=== PATIENT | female | born 1950 | race Caucasian/White ===

== ENCOUNTER 2020-06-07 10:39 | Inpatient (IN) | payer MEDICARE, OTHER ==
[2020-06-07] MEDS ORDERED: Sodium Chloride 0.9% 10 ML Syringe FLUSH PRN (14:19)
[2020-06-07] MEDS ORDERED: Metoprolol Tartrate 25 MG Tab PO ONE (14:29)
[2020-06-07 15:54] LABS: ANION GAP 15.1 mmol/L (5-15); CHLORIDE,CL 99 mmol/L (98-107); SODIUM,NA 135 mmol/L (136-145)
[2020-06-07] MEDS: Rivaroxaban 10 MG Tab PO SCH (17:45)
[2020-06-07] MEDS: Sodium Chloride 0.9% 1,000 ML IV SCH (17:46)
[2020-06-07] MEDS: Acetaminophen 325 MG Tab PO PRN (20:11)
[2020-06-07] MEDS: Metoprolol Tartrate 25 MG Tab PO SCH (20:12)
[2020-06-07] MEDS ORDERED: Metoprolol Tartrate 5 MG/5 ML SDV IVPUSH PRN (22:10)
[2020-06-08] MEDS: Acetaminophen 325 MG Tab PO PRN ×2 (02:32→17:16)
[2020-06-08] MEDS: Sodium Chloride 0.9% 1,000 ML IV SCH (07:34)
[2020-06-08] MEDS: Metoprolol Tartrate 25 MG Tab PO SCH (08:30)
[2020-06-08] MEDS: Metoprolol Tartrate 50 MG Tab PO SCH ×2 (10:32→20:02)
--- NOTE | 2020-06-08 11:41 | PCM.PN ---
- General Info Date of Service: 06/08/20 Functional Status: Reports: Pain Controlled, Tolerating Diet. Denies: Ambulating - Review of Systems General: Reports: No Symptoms HEENT: Reports: No Symptoms Pulmonary: Denies: Shortness of Breath, Cough, Sputum Cardiovascular: Reports: Palpitations. Denies: Orthopnea, PND, Edema Gastrointestinal: Reports: No Symptoms Genitourinary: Reports: Frequency, Flank Pain. Denies: Dysuria Musculoskeletal: Reports: No Symptoms Skin: Reports: No Symptoms Neurological: Denies: Confusion Psychiatric: Reports: No Symptoms - Patient Data Vitals - Most Recent: Last Vital Signs Temp 98.1 F 06/08/20 10:31 Pulse 107 H 06/08/20 10:32 Resp 18 06/08/20 10:31 BP 138/93 H 06/08/20 10:32 Pulse Ox 98 06/08/20 10:31 Weight - Most Recent: 187 lb I&O - Last 24 Hours: Intake & Output 06/07/20 06/08/20 06/08/20 22:59 06:59 14:59 Intake Total 917 905 Output Total 800 1350 Balance 117 -445 Lab Results Last 24 Hours: Laboratory Results - last 24 hr 06/07/20 06/07/20 06/07/20 Range/Units 14:19 14:50 14:50 WBC 5.42 (5.00-10.00) 10^3/uL RBC 3.69 L (3.80-5.50) 10^6/uL Hgb 11.6 L (12.0-16.0) g/dL Hct 35.6 L (37.0-47.0) % MCV 96.5 H (82.0-92.0) fL MCH 31.4 H (27.0-31.0) pg MCHC 32.6 (32.0-36.0) g/dL RDW 14.7 H (11.5-14.5) % Plt Count 330 (150-400) 10^3/uL MPV 8.6 (7.4-10.4) fL Immature Gran % (Auto) 0.2 (0.0-5.0) % Neut % (Auto) 70.6 H (50.0-70.0) % Lymph % (Auto) 21.6 (20.0-40.0) % Beckham % (Auto) 4.1 (2.0-8.0) % Eos % (Auto) 3.3 H (1.0-3.0) % Baso % (Auto) 0.2 (0.0-1.0) % Neut # (Auto) 3.83 (2.50-7.00) 10^3/uL Lymph # (Auto) 1.17 (1.00-4.00) 10^3/uL Beckham # (Auto) 0.22 (0.10-0.80) 10^3/uL Eos # (Auto) 0.18 (0.10-0.30) 10^3/uL Baso # (Auto) 0.01 (0.00-0.10) 10^3/uL Immature Gran # (Auto) 0.01 (0.00-0.50) 10^3/uL Sodium 135 L (136-145) mmol/L Potassium 4.1 (3.5-5.1) mmol/L Chloride 99 (98-107) mmol/L Carbon Dioxide 25.0 (21.0-32.0) mmol/L Anion Gap 15.1 H (5-15) mmol/L BUN 22 H (7-18) mg/dL Creatinine 0.84 (0.51-1.17) mg/dL Est Cr Clr Drug Dosing 48.58 mL/min Estimated GFR (MDRD) > 60 mL/min Glucose 153 H (70-140) mg/dL Calcium 8.7 (8.7-10.3) mg/dL Phosphorus 3.7 (2.6-4.7) mg/dL Magnesium 2.0 (1.8-2.4) mg/dL Total Bilirubin 0.6 (0.2-1.0) mg/dL AST 14 L (15-37) U/L ALT 23 (14-63) U/L Alkaline Phosphatase 97 (46-116) U/L Troponin I (0.000-0.056) ng/mL Total Protein 7.1 (6.4-8.2) g/dL Albumin 3.68 (3.40-5.00) g/dL TSH, Ultra Sensitive (0.340-4.820) uIU/mL Specimen Type Urincc Urine Color Yellow (YELLOW) Urine Appearance Clear (CLEAR) Urine pH 5.5 (5.0-9.0) Ur Specific Ridott 1.015 (1.005-1.030) Urine Protein Negative (NEGATIVE) mg/dL Urine Glucose (UA) Negative (NEGATIVE) mg/dL Urine Ketones Negative (NEGATIVE) mg/dL Urine Occult Blood Negative (NEGATIVE) Urine Nitrite Negative (NEGATIVE) Urine Bilirubin Negative (NEGATIVE) Urine Urobilinogen 0.2 (0.2-1.0) E.U./dL Ur Leukocyte Esterase Trace H (NEGATIVE) Urine RBC 0-5 (0-5) /HPF Urine WBC 30-40 H (0-5) /HPF Ur Epithelial Cells Few /LPF Urine Bacteria Occasional (NONE TO FEW) /HPF Urine Mucus Moderate H (NEGATIVE) /LPF 06/07/20 Range/Units 14:50 WBC (5.00-10.00) 10^3/uL RBC (3.80-5.50) 10^6/uL Hgb (12.0-16.0) g/dL Hct (37.0-47.0) % MCV (82.0-92.0) fL MCH (27.0-31.0) pg MCHC (32.0-36.0) g/dL RDW (11.5-14.5) % Plt Count (150-400) 10^3/uL MPV (7.4-10.4) fL Immature Gran % (Auto) (0.0-5.0) % Neut % (Auto) (50.0-70.0) % Lymph % (Auto) (20.0-40.0) % Beckham % (Auto) (2.0-8.0) % Eos % (Auto) (1.0-3.0) % Baso % (Auto) (0.0-1.0) % Neut # (Auto) (2.50-7.00) 10^3/uL Lymph # (Auto) (1.00-4.00) 10^3/uL Beckham # (Auto) (0.10-0.80) 10^3/uL Eos # (Auto) (0.10-0.30) 10^3/uL Baso # (Auto) (0.00-0.10) 10^3/uL Immature Gran # (Auto) (0.00-0.50) 10^3/uL Sodium (136-145) mmol/L Potassium (3.5-5.1) mmol/L Chloride (98-107) mmol/L Carbon Dioxide (21.0-32.0) mmol/L Anion Gap (5-15) mmol/L BUN (7-18) mg/dL Creatinine (0.51-1.17) mg/dL Est Cr Clr Drug Dosing mL/min Estimated GFR (MDRD) mL/min Glucose (70-140) mg/dL Calcium (8.7-10.3) mg/dL Phosphorus (2.6-4.7) mg/dL Magnesium (1.8-2.4) mg/dL Total Bilirubin (0.2-1.0) mg/dL AST (15-37) U/L ALT (14-63) U/L Alkaline Phosphatase (46-116) U/L Troponin I < 0.017 (0.000-0.056) ng/mL Total Protein (6.4-8.2) g/dL Albumin (3.40-5.00) g/dL TSH, Ultra Sensitive 2.364 (0.340-4.820) uIU/mL Specimen Type Urine Color (YELLOW) Urine Appearance (CLEAR) Urine pH (5.0-9.0) Ur Specific Ridott (1.005-1.030) Urine Protein (NEGATIVE) mg/dL Urine Glucose (UA) (NEGATIVE) mg/dL Urine Ketones (NEGATIVE) mg/dL Urine Occult Blood (NEGATIVE) Urine Nitrite (NEGATIVE) Urine Bilirubin (NEGATIVE) Urine Urobilinogen (0.2-1.0) E.U./dL Ur Leukocyte Esterase (NEGATIVE) Urine RBC (0-5) /HPF Urine WBC (0-5) /HPF Ur Epithelial Cells /LPF Urine Bacteria (NONE TO FEW) /HPF Urine Mucus (NEGATIVE) /LPF Med Orders - Current: Current Medications Acetaminophen (Tylenol) 650 mg PO Q4H PRN PRN Reason: Pain (Mild 1-3)/fever Last Admin: 06/08/20 02:32 Dose: 650 mg Documented by: Sodium Chloride (Normal Saline) 1,000 mls @ 75 mls/hr IV ASDIRECTED COLE Last Admin: 06/08/20 07:34 Dose: 75 mls/hr Documented by: Metoprolol Tartrate (Lopressor) 5 mg IVPUSH ONETIME PRN PRN Reason: Tachycardia Metoprolol Tartrate (Lopressor) 50 mg PO BID [facility] Last Admin: 06/08/20 10:32 Dose: 50 mg Documented by: Rivaroxaban (Xarelto) 20 mg PO 1800 [facility] Last Admin: 06/07/20 17:45 Dose: 20 mg Documented by: Sodium Chloride (Saline Flush) 10 ml FLUSH Q8HR PRN PRN Reason: keep vein open Last Admin: 06/07/20 14:49 Dose: 10 ml Documented by: Discontinued Medications Metoprolol Tartrate (Lopressor) 25 mg PO ONETIME ONE Stop: 06/07/20 14:30 Last Admin: 06/07/20 14:39 Dose: 25 mg Documented by: Metoprolol Tartrate (Lopressor) 25 mg PO BID [facility] Last Admin: 06/08/20 08:30 Dose: 25 mg Documented by: - Exam Quality Assessment: DVT Prophylaxis. No: Supplemental Oxygen General: Alert, Oriented Neck: Supple Lungs: Clear to Auscultation, Normal Respiratory Effort Cardiovascular: Irregular Rhythm, Tachycardia GI/Abdominal Exam: Normal Bowel Sounds, Soft (Female) Exam: Deferred Back Exam: CVA Tenderness (L). No: CVA Tenderness (R) Extremities: No Pedal Edema Peripheral Pulses: 2+: Radial (R), 3+: Femoral (L) Skin: Warm, Dry, Intact Neurological: No New Focal Deficit Psy/Mental Status: Alert, Normal Affect, Normal Mood Sepsis Event Note - Evaluation Sepsis Screening Result: No Definite Risk - Focused Exam Vital Signs: Vital Signs Temp Pulse Pulse Resp BP BP BP 06/08/20 10:32 107 H 138/93 H 06/08/20 10:31 98.1 F 107 H 18 138/93 H 06/08/20 09:20 98.0 F 117 H 18 135/92 H 06/08/20 08:30 117 H 135/92 H 06/08/20 07:00 97.4 F 98 16 140/84 06/08/20 02:33 98.1 F 96 18 131/90 Pulse Ox 06/08/20 10:32 06/08/20 10:31 98 06/08/20 09:20 98 06/08/20 08:30 06/08/20 07:00 97 06/08/20 02:33 97 - Problem List Review Problem List Initiated/Reviewed/Updated: Yes - My Orders Last 24 Hours: My Active Orders 06/08/20 09:15 Metoprolol Tartrate [Lopressor] 50 mg PO BID - Plan Plan:: History summary Katelin is a 69yr old female patient was admitted into OBS status yesterday due to newly found onset atrial fibrillation with RVR. Patient ported to an [facility] clinic yesterday complaining of urinary frequency with left-sided flank pain was incidentally found to have irregular heart rate. Patient denies any palpitations to her being admitted. No noted history of cardiac arrhthymias. Side of possible infection induced A. fib she does have longstanding history of hypertension and obesity, denies REJI. UTI history --Evaluated by Tiffanie Lopes APRN, RICARDO on 04/01/20 for complaints of UTI symptoms and was diagnosed with BV and vaginal yeast infection. UC +ve for ecoli and mixed microflora and UTI was treated with macrobid bid x 5 days. --Evaluated by Tiffanie Lopes APRN, RICARDO on03/11/20 for complaints of urinary frequency and burning. Urine culture indicated <10,000 mixed microflora; antibiotics started initially and stopped due to inconclusive result. ECHO 2019, EF 75%--hyperdynamic, grade 1 ventricular diastolic dysfunction, moderately dilated L left atrium, No significant stenosis or regurgitation Hospital course Patient received metoprolol tartrate 5 mg IV push with some improvement in heart rate however periodically breaking through the 120s 130s. Started on factor Xa inhibitor, discused DOAC with pharmacy/patient despite cost patient willing to continue post hospitalization. BP >120, good MAP Primary Hospital problems --Atrial fibrillation, suspect new onset given symptoms, [id number] Score, 3 )age/htn/gender) --UTI, mild symptoms however prudent to treat --CAD, reviewed cardiac cath 2019--Non-obstructive --Obesity BMI 33%, comorbid/contributory --Hypertension, comorbid/contributory, ARB --Hyperlipipidemia --RA, holding NSAIDs and methotrexate. Methotrexate factor Xa inhibitor not good combination--will discuss upon discharge --Osteopenia Disposition/overall plan --Increase metoprolol tartrate to 50 mg p.o. now, can start new dose regimen now despite 25 mg given earlier --If no improvement in heart rate at rest with BB will consider adjuntive CCB or digoxin even without overt CHF history. --Saline lock IV fluids --Add PO abx due to UTI- --Cont Telemetry --Bedside video/education on atrial fibrillation --Continue BP heart rate parameters
[2020-06-08] MEDS ORDERED: Omeprazole 20 MG Cap.CR PO PRN (11:42)
[2020-06-08] MEDS ORDERED: Sodium Chloride 0.9% 10 ML Syringe FLUSH PRN (11:49)
[2020-06-08] MEDS: Nitrofurantoin Monohydrate/Macrocrystalline 100 MG Cap PO SCH ×2 (14:56→22:01)
[2020-06-08] MEDS: Rivaroxaban 10 MG Tab PO SCH (17:16)
[2020-06-09] MEDS ORDERED: Diltiazem 25 MG/5 ML SDV IVPUSH ONE (06:18)
[2020-06-09] MEDS ORDERED: Diltiazem 25 MG/5 ML SDV IVPUSH PRN (07:00)
[2020-06-09] MEDS: Nitrofurantoin Monohydrate/Macrocrystalline 100 MG Cap PO SCH ×2 (07:59→21:44)
--- NOTE | 2020-06-09 10:23 | PCM.PN ---
- General Info Date of Service: 06/09/20 Functional Status: Reports: Pain Controlled - Review of Systems Pulmonary: Reports: Shortness of Breath (only when ambulating to ). Denies: Cough, Sputum, Hemoptysis, Wheezing Cardiovascular: Reports: Palpitations, Dyspnea on Exertion. Denies: Chest Pain Gastrointestinal: Reports: No Symptoms Genitourinary: Reports: No Symptoms Musculoskeletal: Reports: No Symptoms Skin: Reports: No Symptoms Neurological: Denies: Confusion Psychiatric: Reports: No Symptoms - Patient Data Vitals - Most Recent: Last Vital Signs Temp 98.7 F 06/09/20 06:40 Pulse 103 H 06/09/20 06:40 Resp 20 06/09/20 06:40 BP 138/80 06/09/20 06:40 Pulse Ox 95 06/09/20 06:40 Weight - Most Recent: 187 lb I&O - Last 24 Hours: Intake & Output 06/08/20 06/09/20 06/09/20 22:59 06:59 14:59 Intake Total 450 200 Output Total 900 800 Balance -450 -600 Med Orders - Current: Current Medications Acetaminophen (Tylenol) 650 mg PO Q4H PRN PRN Reason: Pain (Mild 1-3)/fever Last Admin: 06/08/20 17:16 Dose: 650 mg Documented by: Diltiazem HCl (Diltiazem) 5 mg IVPUSH ONETIME PRN PRN Reason: heart rate greater than 110 Last Admin: 06/09/20 07:01 Dose: 5 mg Documented by: Metoprolol Tartrate (Lopressor) 50 mg PO BID [facility] Last Admin: 06/08/20 20:02 Dose: 50 mg Documented by: Nitrofurantoin Macrocrystals (Macrobid) 100 mg PO BID [facility] Last Admin: 06/09/20 07:59 Dose: 100 mg Documented by: Omeprazole (Omeprazole) 20 mg PO DAILY PRN PRN Reason: Heartburn Rivaroxaban (Xarelto) 20 mg PO 1800 [facility] Last Admin: 06/08/20 17:16 Dose: 20 mg Documented by: Sodium Chloride (Saline Flush) 10 ml FLUSH Q8HR PRN PRN Reason: keep vein open Last Admin: 06/07/20 14:49 Dose: 10 ml Documented by: Sodium Chloride (Saline Flush) 10 ml FLUSH Q8HR PRN PRN Reason: keep vein open Discontinued Medications Diltiazem HCl (Diltiazem) 5 mg IVPUSH ONETIME ONE Stop: 06/09/20 06:19 Last Admin: 06/09/20 06:30 Dose: 5 mg Documented by: Sodium Chloride (Normal Saline) 1,000 mls @ 75 mls/hr IV ASDIRECTED [facility] Last Admin: 06/08/20 07:34 Dose: 75 mls/hr Documented by: Metoprolol Tartrate (Lopressor) 25 mg PO ONETIME ONE Stop: 06/07/20 14:30 Last Admin: 06/07/20 14:39 Dose: 25 mg Documented by: Metoprolol Tartrate (Lopressor) 25 mg PO BID [facility] Last Admin: 06/08/20 08:30 Dose: 25 mg Documented by: Metoprolol Tartrate (Lopressor) 5 mg IVPUSH ONETIME PRN PRN Reason: Tachycardia - Exam Quality Assessment: DVT Prophylaxis. No: Supplemental Oxygen General: Alert, Oriented, Cooperative, No Acute Distress Lungs: Clear to Auscultation, Normal Respiratory Effort Cardiovascular: Irregular Rhythm, Tachycardia GI/Abdominal Exam: Normal Bowel Sounds, Soft (Female) Exam: Deferred Back Exam: No: CVA Tenderness (L), CVA Tenderness (R) Extremities: No Pedal Edema, Other (deformities bilateral hands due to RA) Peripheral Pulses: 2+: Radial (L), Radial (R) Neurological: Normal Gait, Normal Speech Psy/Mental Status: Alert, Normal Affect, Normal Mood Sepsis Event Note - Evaluation Sepsis Screening Result: No Definite Risk - Focused Exam Vital Signs: Vital Signs Temp Pulse Resp BP Pulse Ox 06/09/20 06:40 98.7 F 103 H 20 138/80 95 06/09/20 03:00 98.6 F 112 H 20 140/85 95 06/08/20 23:43 101 H 139/86 06/08/20 23:00 98 F 108 H 20 160/102 H 96 - Problem List Review Problem List Initiated/Reviewed/Updated: Yes - My Orders Last 24 Hours: My Active Orders 06/08/20 11:42 Omeprazole 20 mg PO DAILY PRN 06/08/20 11:45 Nitrofurantoin Stearns/Macrocryst [Macrobid] 100 mg PO BID 06/08/20 11:49 Sodium Chloride 0.9% [Saline Flush] 10 ml FLUSH Q8HR PRN Convert IV to Saline Lock [OM.PC] Routine - Plan Plan:: History summary Katelin is a 69yr old female patient was admitted into OBS status yesterday due to newly found onset atrial fibrillation with RVR. Patient ported to an [facility] yesterday complaining of urinary frequency with left-sided flank pain was incidentally found to have irregular heart rate. Patient denies any palpitations to her being admitted. No noted history of cardiac arrhthymias. Side of possible infection induced A. fib she does have longstanding history of hypertension and obesity, denies REJI. UTI history --Evaluated by Tiffanie Lopes APRN, CNP on 04/01/20 for complaints of UTI symptoms and was diagnosed with BV and vaginal yeast infection. UC +ve for ecoli and mixed microflora and UTI was treated with macrobid bid x 5 days. --Evaluated by Tiffanie Lopes APRN, CNP on03/11/20 for complaints of urinary frequency and burning. Urine culture indicated <10,000 mixed microflora; antibiotics started initially and stopped due to inconclusive result. ECHO 2019, EF 75%--hyperdynamic, grade 1 ventricular diastolic dysfunction, moderately dilated L left atrium, No significant stenosis or regurgitation Hospital course 06/08/2020 patient received metoprolol tartrate 5 mg IV push with some improvement in heart rate however periodically breaking through the 120s 130s. Started on factor Xa inhibitor, discused DOAC with pharmacy/patient despite cost patient willing to continue post hospitalization. BP >120, good MAP 06/09/2020 Patient with tachycardia with overnight concerns of ongoing atrial fibrillation with RVR with orders to discontinue beta-loren and start diltiazem IV push x2. She with mild shortness of breath only on ambulation to the bathroom, no edema no chest pain, she continues with anticoagulation, RVR 120s to 140s at times at rest Primary Hospital problems --Atrial fibrillation, suspect new onset given symptoms, [id number] Score, 3 )age/htn/gender) --UTI, mild symptoms upon admission, abx PO --CAD, reviewed cardiac cath 2018--Non-obstructive --Obesity BMI 33%, comorbid/contributory --Hypertension, comorbid/contributory, ARB --Hyperlipipidemia --RA, holding NSAIDs and methotrexate. Methotrexate factor Xa inhibitor not good combination--will discuss upon discharge, --Osteopenia Disposition/overall plan --Change to inpatient due to atrial tachycardia ongoing need for titration of high risk medications --Given refractory atrial fibrillation with RVR will place patient on diltiazem drip per protocol, monitor BP, keep hydrated to avoid hypotension as we titrate up --If no improvement in HR/rhythm even lenient control will send patient to [facility] for cardioversion a.m. since 72-hours anti-coagulation, likely will need MOE since stable --Could consider adding digoxin tonight if no improvement and/or hypotension due to CCB gtt even without overt CHF history. --Encourage PO fluids--very important since upward titration of CCB --Cont Telemetry --Bedside video/education on atrial fibrillation --Continue BP heart rate parameters
[2020-06-09 10:56] LABS: ANION GAP 11.8 mmol/L (5-15); CHLORIDE,CL 99 mmol/L (98-107); SODIUM,NA 132 mmol/L (136-145)
[2020-06-09] MEDS: Acetaminophen 325 MG Tab PO PRN ×3 (10:56→21:44)
[2020-06-09] MEDS ORDERED: Diltiazem 125 MG in Sodium Chloride 0.9% 100 ML IV SCH (11:00)
[2020-06-09] MEDS ORDERED: Sodium Chloride 0.9% 100 ML IV SCH (11:00)
[2020-06-09] MEDS ORDERED: Diltiazem 25 MG/5 ML SDV IVPUSH SCH ×2 (12:15→13:15)
[2020-06-09] MEDS: Rivaroxaban 10 MG Tab PO SCH (17:31)
[2020-06-09] MEDS: Diltiazem 125 MG in Sodium Chloride 0.9% 100 ML IV SCH (20:36)
[2020-06-10] MEDS: Acetaminophen 325 MG Tab PO PRN ×4 (04:15→18:06)
[2020-06-10] MEDS: Diltiazem 125 MG in Sodium Chloride 0.9% 100 ML IV SCH (05:27)
[2020-06-10] MEDS: Nitrofurantoin Monohydrate/Macrocrystalline 100 MG Cap PO SCH ×2 (09:02→21:06)
[2020-06-10] MEDS ORDERED: Digoxin 500 MCG/2 ML Amp IVPUSH ONE ×4 (11:00→23:00)
[2020-06-10] MEDS: Diltiazem IR 30 MG Tab PO SCH ×3 (11:33→23:12)
[2020-06-10] MEDS: Rivaroxaban 10 MG Tab PO SCH (17:26)
[2020-06-10] MEDS ORDERED: Amiodarone/Dextrose,Iso-Osmotic 150 MG/100 ML Premix Bag IV ONE (17:56)
[2020-06-10] MEDS: Amiodarone In Dextrose,Iso-Osm 360 MG in Premix Bag 1 BAG IV SCH ×2 (19:54)
--- NOTE | 2020-06-10 21:17 | PCM.PN ---
- General Info Date of Service: 06/10/20 Functional Status: Reports: Pain Controlled - Review of Systems General: Reports: No Symptoms HEENT: Reports: No Symptoms Pulmonary: Reports: Shortness of Breath Cardiovascular: Denies: Chest Pain, Palpitations Gastrointestinal: Reports: No Symptoms Genitourinary: Reports: No Symptoms Musculoskeletal: Reports: No Symptoms Skin: Reports: No Symptoms Neurological: Reports: No Symptoms Psychiatric: Reports: No Symptoms - Patient Data Vitals - Most Recent: Last Vital Signs Temp 98 F 06/10/20 19:00 Pulse 99 06/10/20 19:00 Resp 18 06/10/20 19:00 BP 136/90 06/10/20 19:00 Pulse Ox 96 06/10/20 19:00 Weight - Most Recent: 187 lb I&O - Last 24 Hours: Intake & Output 06/10/20 06/10/20 06/10/20 06:59 14:59 22:59 Intake Total 600 700 Output Total 900 300 Balance -300 400 Med Orders - Current: Current Medications Acetaminophen (Tylenol) 650 mg PO Q4H PRN PRN Reason: Pain (Mild 1-3)/fever Last Admin: 06/10/20 18:06 Dose: 650 mg Documented by: Digoxin (Lanoxin) 62.5 mcg IVPUSH ONETIME ONE Stop: 06/10/20 23:01 Diltiazem HCl (Cardizem) 30 mg PO Q6HR [facility] Last Admin: 06/10/20 17:25 Dose: 30 mg Documented by: Sodium Chloride (Normal Saline) 100 mls @ 100 mls/hr IV ASDIRECTED [facility] Amiodarone HCl/Dextrose 360 mg (/ Premix) 200 mls @ 33.3 mls/hr IV ASDIRECTED [facility]; Protocol Last Admin: 06/10/20 19:54 Dose: 33.3 mls/hr Documented by: Metoprolol Tartrate (Lopressor) 50 mg PO BID [facility] Last Admin: 06/08/20 20:02 Dose: 50 mg Documented by: Nitrofurantoin Macrocrystals (Macrobid) 100 mg PO BID [facility] Last Admin: 06/10/20 21:06 Dose: 100 mg Documented by: Omeprazole (Omeprazole) 20 mg PO DAILY PRN PRN Reason: Heartburn Rivaroxaban (Xarelto) 20 mg PO 1800 [facility] Last Admin: 06/10/20 17:26 Dose: 20 mg Documented by: Sodium Chloride (Saline Flush) 10 ml FLUSH Q8HR PRN PRN Reason: keep vein open Last Admin: 06/07/20 14:49 Dose: 10 ml Documented by: Sodium Chloride (Saline Flush) 10 ml FLUSH Q8HR PRN PRN Reason: keep vein open Discontinued Medications Amiodarone HCl/Dextrose (Nexterone In Dextrose 150 Mg/100 Ml) 150 mg IV .BOLUS ONE; Protocol Stop: 06/10/20 17:57 Last Admin: 06/10/20 18:44 Dose: 150 mg Documented by: Digoxin (Lanoxin) 250 mcg IVPUSH ONETIME ONE Stop: 06/10/20 11:01 Last Admin: 06/10/20 11:08 Dose: 250 mcg Documented by: Digoxin (Lanoxin) 125 mcg IVPUSH ONETIME ONE Stop: 06/10/20 17:01 Last Admin: 06/10/20 17:22 Dose: 125 mcg Documented by: Digoxin (Lanoxin) 125 mcg IVPUSH ONETIME ONE Stop: 06/10/20 23:01 Diltiazem HCl (Diltiazem) 5 mg IVPUSH ONETIME ONE Stop: 06/09/20 06:19 Last Admin: 06/09/20 06:30 Dose: 5 mg Documented by: Diltiazem HCl (Diltiazem) 5 mg IVPUSH ONETIME PRN PRN Reason: heart rate greater than 110 Last Admin: 06/09/20 07:01 Dose: 5 mg Documented by: Diltiazem HCl (Diltiazem) 5 mg IVPUSH ONETIME COLE Diltiazem HCl (Diltiazem) 5 mg IVPUSH ONETIME [facility] Last Admin: 06/09/20 13:21 Dose: 5 mg Documented by: Sodium Chloride (Normal Saline) 1,000 mls @ 75 mls/hr IV ASDIRECTED [facility] Last Admin: 06/08/20 07:34 Dose: 75 mls/hr Documented by: Diltiazem HCl 125 mg/ Sodium (Chloride) 125 mls @ 5 mls/hr IV TITRATE [facility]; Protocol Last Admin: 06/10/20 05:27 Dose: 15 mg/hr, 15 mls/hr Documented by: Diltiazem HCl 125 mg/ Sodium (Chloride) 125 mls @ 5 mls/hr IV TITRATE [facility]; Protocol Last Admin: 06/09/20 11:05 Dose: 5 mg/hr, 5 mls/hr Documented by: Metoprolol Tartrate (Lopressor) 25 mg PO ONETIME ONE Stop: 06/07/20 14:30 Last Admin: 06/07/20 14:39 Dose: 25 mg Documented by: Metoprolol Tartrate (Lopressor) 25 mg PO BID [facility] Last Admin: 06/08/20 08:30 Dose: 25 mg Documented by: Metoprolol Tartrate (Lopressor) 5 mg IVPUSH ONETIME PRN PRN Reason: Tachycardia - Exam Quality Assessment: DVT Prophylaxis. No: Supplemental Oxygen General: Alert, Oriented Neck: Supple Lungs: Clear to Auscultation, Normal Respiratory Effort Cardiovascular: No Murmurs, Irregular Rhythm, Tachycardia GI/Abdominal Exam: Normal Bowel Sounds (Female) Exam: Deferred Back Exam: No: CVA Tenderness (L), CVA Tenderness (R) Extremities: Normal Capillary Refill Peripheral Pulses: 2+: Radial (L), Radial (R) Skin: Warm, Dry, Intact - Patient Data Result Diagrams: 06/09/20 10:30 06/09/20 10:30 Sepsis Event Note - Evaluation Sepsis Screening Result: No Definite Risk - Focused Exam Vital Signs: Vital Signs Temp Pulse Pulse Resp BP BP BP 06/10/20 19:00 98 F 99 18 136/90 06/10/20 18:52 112 H 16 145/82 H 06/10/20 18:50 113 H 16 156/84 H 06/10/20 17:25 99 155/99 H 06/10/20 17:22 99 06/10/20 15:00 97.5 F 88 16 151/105 H 06/10/20 14:00 06/10/20 11:33 79 129/90 06/10/20 11:08 80 06/10/20 11:00 97.4 F 76 24 H 129/90 Pulse Ox Pulse Ox 06/10/20 19:00 96 06/10/20 18:52 96 06/10/20 18:50 97 06/10/20 17:25 06/10/20 17:22 06/10/20 15:00 96 06/10/20 14:00 96 06/10/20 11:33 06/10/20 11:08 06/10/20 11:00 96 - Problem List Review Problem List Initiated/Reviewed/Updated: Yes - My Orders Last 24 Hours: My Active Orders 06/10/20 11:30 Diltiazem IR [Cardizem] 30 mg PO Q6HR 06/10/20 19:15 Amiodarone In Dextrose,Iso-Osm [Nexterone in Dextrose 360 MG/200 ML] 360 mg Premix Bag 1 bag IV ASDIRECTED 06/10/20 23:00 Digoxin [Lanoxin] 62.5 mcg IVPUSH ONETIME ONE - Plan Plan:: History summary Katelin is a 69yr old female patient was admitted into OBS status yesterday due to newly found onset atrial fibrillation with RVR. Patient ported to an [facility] clinic yesterday complaining of urinary frequency with left-sided flank pain was incidentally found to have irregular heart rate. Patient denies any palpitations to her being admitted. No noted history of cardiac arrhthymias. Side of possible infection induced A. fib she does have longstanding history of hypertension and obesity, denies REJI. UTI history --Evaluated by Tiffanie Lopes APRN, RICARDO on 04/01/20 for complaints of UTI sy mptoms and was diagnosed with BV and vaginal yeast infection. UC +ve for ecoli and mixed microflora and UTI was treated with macrobid bid x 5 days. --Evaluated by Tiffanie Lopes APRN, RICARDO on03/11/20 for complaints of urinary frequency and burning. Urine culture indicated <10,000 mixed microflora; antibiotics started initially and stopped due to inconclusive result. ECHO 2019, EF 75%--hyperdynamic, grade 1 ventricular diastolic dysfunction, moderately dilated L left atrium, No significant stenosis or regurgitation Hospital course 06/08/2020 patient received metoprolol tartrate 5 mg IV push with some improvement in heart rate however periodically breaking through the 120s 130s. Started on factor Xa inhibitor, discused DOAC with pharmacy/patient despite cost patient willing to continue post hospitalization. BP >120, good MAP 06/09/2020 Patient with tachycardia with overnight concerns of ongoing atrial fibrillation with RVR with orders to discontinue beta-loren and start diltiazem IV push x2. She with mild shortness of breath only on ambulation to the bathroom, no edema no chest pain, she continues with anticoagulation, RVR 120s to 140s at times at rest 06/10/2020 Patient remains tachycardia despite BB, CCB drip now with some Dyspnea on mild ambulation. BP good to high. NAD, no fever, no c/p. Na+ slightly low. Primary Hospital problems --Atrial fibrillation, suspect new onset given symptoms, [id number] Score, 3 (age/htn/gender) --UTI, mild symptoms upon admission, abx PO --CAD, reviewed cardiac cath 2018--Non-obstructive --Obesity BMI 33%, comorbid/contributory --Hypertension, comorbid/contributory, ARB --Hyperlipipidemia --RA, holding NSAIDs and methotrexate. Methotrexate factor Xa inhibitor not good combination--will discuss upon discharge, --Osteopenia Disposition/overall plan --Cont with inpatient status, will add dig with loading dose, DC CCB drip, add PO diltiazem --Given refractory atrial fibrillation with RVR will add Dig. Will C/S with [facility]/call/cardiology this afternoon for further plan --Encourage PO fluids--very important since upward titration of CCB --Cont Telemetry --Continue BP heart rate parameters
[2020-06-11] MEDS: Acetaminophen 325 MG Tab PO PRN ×4 (00:04→12:56)
[2020-06-11] MEDS: Amiodarone In Dextrose,Iso-Osm 360 MG in Premix Bag 1 BAG IV SCH ×4 (01:08→12:05)
[2020-06-11] MEDS: Diltiazem IR 30 MG Tab PO SCH ×2 (05:02→13:46)
[2020-06-11 08:12] LABS: ANION GAP 15.1 mmol/L (5-15); CHLORIDE,CL 94 mmol/L (98-107); SODIUM,NA 128 mmol/L (136-145)
[2020-06-11] MEDS: Nitrofurantoin Monohydrate/Macrocrystalline 100 MG Cap PO SCH (08:59)
[2020-06-11] MEDS ORDERED: Furosemide 40 MG/4 ML VIAL IVPUSH ONE ×2 (11:54→12:14)
[2020-06-11] MEDS ORDERED: Diltiazem IR 60 MG Tab PO ONE (12:37)
--- NOTE | 2020-06-11 13:19 | PCM.DCSUM1 ---
Discharge Summary - Hospital Course Diagnosis: Stroke: No - Discharge Data Discharge Date: 06/11/20 Discharge Disposition: DC/Tfer to Acute Hospital 02 Condition: Good - Referral to Home Health Primary Care Physician: Tiffanie Lopes NP - Discharge Plan *PRESCRIPTION DRUG MONITORING PROGRAM REVIEWED*: Not Applicable *COPY OF PRESCRIPTION DRUG MONITORING REPORT IN PATIENT [place]: Not Applicable Home Medications: Home Meds Albuterol [Proventil HFA] 1 - 2 puff IN Q4HR PRN 06/07/20 [History] Aspirin [Aspirin EC] 81 mg PO DAILY@49906/07/20 [History] Calcium Citrate/Vitamin D2 [Juan R-Citrate Plus Vitamin D Tab] 1 tab PO BID@,18 06/07/20 [History] Diclofenac Sodium [Voltaren] 75 mg PO DAILY@49906/07/20 [History] Folic Acid 1 mg PO DAILY@49906/07/20 [History] Methotrexate PF 0.8 ml IM FR 06/07/20 [History] Omeprazole 20 mg PO DAILY PRN 06/07/20 [History] lisinopriL [Lisinopril] 15 mg PO DAILY@49906/07/20 [History] miSOPROStoL [Cytotec] 200 mcg PO DAILY@49906/07/20 [History] - Discharge Summary/Plan Comment DC Time >30 min.: Yes Discharge Summary/Plan Comment: Final diagnosis --Atrial fibrillation, RVR, suspect new onset given symptoms, [id number] Score 3 (age/htn/gender) --UTI, resolved with macrobid --CAD, cardiac cath 2018--Non-obstructive --Obesity BMI 33%, comorbid/contributory --Hypertension, comorbid/contributory, --Hyperlipipidemia --RA, holding NSAIDs and methotrexate since on factor Xa inhibitor --Osteopenia History summary Katelin is a 69yr old female patient was admitted into OBS status yesterday due to newly found onset atrial fibrillation with RVR. Patient ported to an [facility] clinic yesterday complaining of urinary frequency with left-sided flank pain was incidentally found to have irregular heart rate. Patient denies any palpitations to her being admitted. No noted history of cardiac arrhthymias. Side of possible infection induced A. fib she does have longstanding history of hypertension and obesity, denies REJI. UTI history --Evaluated by Tiffanie Lopes APRN, CNP on 04/01/20 for complaints of UTI symptoms and was diagnosed with BV and vaginal yeast infection. UC +ve for ecoli and mixed microflora and UTI was treated with macrobid bid x 5 days. --Evaluated by Tiffanie Lopes APRN, CNP on03/11/20 for complaints of urinary frequency and burning. Urine culture indicated <10,000 mixed microflora; antibiotics started initially and stopped due to inconclusive result. ECHO 2019, EF 75%--hyperdynamic, grade 1 ventricular diastolic dysfunction, moderately dilated L left atrium, No significant stenosis or regurgitation course 06/08/2020; patient received metoprolol tartrate 5 mg IV push with some improvement in HR however periodically breaking through the 120-130s. Started on factor Xa inhibitor, discused DOAC with pharmacy/patient despite cost patient willing to continue post hospitalization. BP >120, good MAP 06/09/2020; Patient with tachycardia with overnight concerns of ongoing atrial fibrillation with RVR with orders to discontinue beta-loren and start diltiazem IV push x2. Has developed mild SOB on ambulation to BR, no edema, no chest pain, continues with anticoagulation, RVR 120-140s at times at rest 06/10/2020; Patient remains tachycardia despite BB, CCB drip with some Dyspnea on mild ambulation. BP good to high. NAD, no fever, no c/p. Na+ slightly low. She was started on amiodarone drip 06/11/2020; utero drip started approximately 24 hours ago pains atrial fibrillation with RVR 1 teens at rest however 130s to 140s with mild ambulation, slight short of breath on ambulation. No JVD, some mild edema in ankles, lungs clear, sodium low 128 possibly some slight fluid overload Medication changes/adjustments/additions this admission Rivaroxaban 20mg p.o. 1800 Cardizem IR 30 mg every 6hr (was on drip x24hrs) Digoxin, IV and initial loading dose then converted to p.o. 125mcg/day Holding methotrexate and diclofenac sodium Lasix 20 mg IVP x1 today Disposition/overall plan --Consulting with Dr. Jarvis [facility] regarding refractory atrial fibrillation despite multiple pharmacological trials he accepted patient for transfer --Due to slight puffiness in 1+ edema in ankles will give 20 mg IV push Lasix, also increased one-time dose diltiazem 60mg due to HTN - General Info Functional Status: Reports: Pain Controlled, Tolerating Diet, Ambulating. Denies: New Symptoms - Review of Systems General: Denies: Weakness, Fatigue, Malaise, Chills HEENT: Reports: No Symptoms Pulmonary: Reports: Shortness of Breath (very mild SOB on ambulation) Cardiovascular: Reports: Palpitations, Dyspnea on Exertion, Edema (very slight non pitting edema lower extremities, puffy). Denies: Lightheadedness Gastrointestinal: Reports: No Symptoms Genitourinary: Denies: Dysuria, Frequency, Hematuria Musculoskeletal: Reports: No Symptoms Skin: Reports: Pallor Neurological: Denies: Confusion Psychiatric: Reports: No Symptoms - Patient Data Vitals - Most Recent: Last Vital Signs Temp 97.9 F 06/11/20 11:00 Pulse 110 H 06/11/20 12:57 Resp 16 06/11/20 11:00 BP 145/87 H 06/11/20 12:57 Pulse Ox 92 L 06/11/20 11:00 Weight - Most Recent: 187 lb I&O - Last 24 hours: Intake & Output 06/10/20 06/11/20 06/11/20 22:59 06:59 14:59 Intake Total 540 400 Output Total 1800 700 Balance -1260 -300 Lab Results - Last 24 hrs: Laboratory Results - last 24 hr 06/11/20 06/11/20 Range/Units 07:45 07:45 WBC 6.85 (5.00-10.00) 10^3/uL RBC 3.45 L (3.80-5.50) 10^6/uL Hgb 11.1 L (12.0-16.0) g/dL Hct 33.1 L (37.0-47.0) % MCV 95.9 H (82.0-92.0) fL MCH 32.2 H (27.0-31.0) pg MCHC 33.5 (32.0-36.0) g/dL RDW 14.4 (11.5-14.5) % Plt Count 264 (150-400) 10^3/uL MPV 8.3 (7.4-10.4) fL Immature Gran % (Auto) 0.1 (0.0-5.0) % Neut % (Auto) 75.5 H (50.0-70.0) % Lymph % (Auto) 14.9 L (20.0-40.0) % [place] % (Auto) 6.3 (2.0-8.0) % Eos % (Auto) 2.9 (1.0-3.0) % Baso % (Auto) 0.3 (0.0-1.0) % Neut # (Auto) 5.17 (2.50-7.00) 10^3/uL Lymph # (Auto) 1.02 (1.00-4.00) 10^3/uL [place] # (Auto) 0.43 (0.10-0.80) 10^3/uL Eos # (Auto) 0.20 (0.10-0.30) 10^3/uL Baso # (Auto) 0.02 (0.00-0.10) 10^3/uL Immature Gran # (Auto) 0.01 (0.00-0.50) 10^3/uL Sodium 128 L (136-145) mmol/L Potassium 4.1 (3.5-5.1) mmol/L Chloride 94 L (98-107) mmol/L Carbon Dioxide 23.0 (21.0-32.0) mmol/L Anion Gap 15.1 H (5-15) mmol/L BUN 11 (7-18) mg/dL Creatinine 0.53 (0.51-1.17) mg/dL Est Cr Clr Drug Dosing 77.00 mL/min Estimated GFR (MDRD) > 60 mL/min Glucose 107 (70-140) mg/dL Calcium 8.6 L (8.7-10.3) mg/dL Med Orders - Current: Current Medications Acetaminophen (Tylenol) 650 mg PO Q4H PRN PRN Reason: Pain (Mild 1-3)/fever Last Admin: 06/11/20 12:56 Dose: 650 mg Documented by: Diltiazem HCl (Cardizem) 30 mg PO Q6HR [facility] Last Admin: 06/11/20 05:02 Dose: 30 mg Documented by: Sodium Chloride (Normal Saline) 100 mls @ 100 mls/hr IV ASDIRECTED [facility] Amiodarone HCl/Dextrose 360 mg (/ Premix) 200 mls @ 33.3 mls/hr IV ASDIRECTED [facility]; Protocol Last Admin: 06/11/20 12:05 Dose: 33.3 mls/hr Documented by: Metoprolol Tartrate (Lopressor) 50 mg PO BID [facility] Last Admin: 06/08/20 20:02 Dose: 50 mg Documented by: Nitrofurantoin Macrocrystals (Macrobid) 100 mg PO BID [facility] Last Admin: 06/11/20 08:59 Dose: 100 mg Documented by: Omeprazole (Omeprazole) 20 mg PO DAILY PRN PRN Reason: Heartburn Rivaroxaban (Xarelto) 20 mg PO 1800 [facility] Last Admin: 06/10/20 17:26 Dose: 20 mg Documented by: Sodium Chloride (Saline Flush) 10 ml FLUSH Q8HR PRN PRN Reason: keep vein open Last Admin: 06/07/20 14:49 Dose: 10 ml Documented by: Sodium Chloride (Saline Flush) 10 ml FLUSH Q8HR PRN PRN Reason: keep vein open Discontinued Medications Amiodarone HCl/Dextrose (Nexterone In Dextrose 150 Mg/100 Ml) 150 mg IV .BOLUS ONE; Protocol Stop: 06/10/20 17:57 Last Admin: 06/10/20 18:44 Dose: 150 mg Documented by: Digoxin (Lanoxin) 250 mcg IVPUSH ONETIME ONE Stop: 06/10/20 11:01 Last Admin: 06/10/20 11:08 Dose: 250 mcg Documented by: Digoxin (Lanoxin) 125 mcg IVPUSH ONETIME ONE Stop: 06/10/20 17:01 Last Admin: 06/10/20 17:22 Dose: 125 mcg Documented by: Digoxin (Lanoxin) 125 mcg IVPUSH ONETIME ONE Stop: 06/10/20 23:01 Digoxin (Lanoxin) 62.5 mcg IVPUSH ONETIME ONE Stop: 06/10/20 23:01 Last Admin: 06/10/20 23:13 Dose: 62.5 mcg Documented by: Diltiazem HCl (Diltiazem) 5 mg IVPUSH ONETIME ONE Stop: 06/09/20 06:19 Last Admin: 06/09/20 06:30 Dose: 5 mg Documented by: Diltiazem HCl (Diltiazem) 5 mg IVPUSH ONETIME PRN PRN Reason: heart rate greater than 110 Last Admin: 06/09/20 07:01 Dose: 5 mg Documented by: Diltiazem HCl (Diltiazem) 5 mg IVPUSH ONETIME [facility] Diltiazem HCl (Diltiazem) 5 mg IVPUSH ONETIME [facility] Last Admin: 06/09/20 13:21 Dose: 5 mg Documented by: Diltiazem HCl (Cardizem) 60 mg PO ONETIME ONE Stop: 06/11/20 12:38 Last Admin: 06/11/20 12:57 Dose: 60 mg Documented by: Furosemide (Lasix) 20 mg IVPUSH NOW ONE Stop: 06/11/20 11:55 Last Admin: 06/11/20 12:21 Dose: 20 mg Documented by: Furosemide (Lasix) 20 mg IVPUSH NOW ONE Stop: 06/11/20 12:15 Sodium Chloride (Normal Saline) 1,000 mls @ 75 mls/hr IV ASDIRECTED [facility] Last Admin: 06/08/20 07:34 Dose: 75 mls/hr Documented by: Diltiazem HCl 125 mg/ Sodium (Chloride) 125 mls @ 5 mls/hr IV TITRATE [facility]; Protocol Last Admin: 06/10/20 05:27 Dose: 15 mg/hr, 15 mls/hr Documented by: Diltiazem HCl 125 mg/ Sodium (Chloride) 125 mls @ 5 mls/hr IV TITRATE [facility]; Protocol Last Admin: 06/09/20 11:05 Dose: 5 mg/hr, 5 mls/hr Documented by: Metoprolol Tartrate (Lopressor) 25 mg PO ONETIME ONE Stop: 06/07/20 14:30 Last Admin: 06/07/20 14:39 Dose: 25 mg Documented by: Metoprolol Tartrate (Lopressor) 25 mg PO BID [facility] Last Admin: 06/08/20 08:30 Dose: 25 mg Documented by: Metoprolol Tartrate (Lopressor) 5 mg IVPUSH ONETIME PRN PRN Reason: Tachycardia - Exam Quality Assessment: Reports: DVT Prophylaxis. Denies: Supplemental Oxygen General: Reports: Alert, Oriented Neck: Reports: Supple. Denies: JVD Lungs: Reports: Clear to Auscultation, Normal Respiratory Effort Cardiovascular: Reports: Irregular Rhythm, Tachycardia (Female) Exam: Deferred Extremities: Other (Slight edema lower ankles nonpitting). No: Pedal Edema Skin: Reports: Warm, Dry, Intact Neurological: Reports: No New Focal Deficit Psy/Mental Status: Reports: Alert, Normal Affect, Normal Mood
[2020-06-11] MEDS ORDERED: Digoxin 125 MCG Tab PO SCH (13:30)
[2020-06-11 15:55] VITALS: BP 155/95; PULSE 115
== END 2020-06-11 14:18 | DRG 309 ==
LOC: KA.MS 10:39 → OBSVTOIN 06-09 10:39
PROVIDERS: ADMIT Nurse Practitioner Family; ATTEND Family Medicine
DX: I48.91 Unspecified atrial fibrillation (principal); K57.90 Diverticulosis of intestine, part unspecified, without perforation or abscess without bleeding; N39.0 Urinary tract infection, site not specified; K44.9 Diaphragmatic hernia without obstruction or gangrene; I25.10 Atherosclerotic heart disease of native coronary artery without angina pectoris; E66.9 Obesity, unspecified; I10 Essential (primary) hypertension; M85.89 Other specified disorders of bone density and structure, multiple sites; E78.5 Hyperlipidemia, unspecified; M06.9 Rheumatoid arthritis, unspecified; M85.80 Other specified disorders of bone density and structure, unspecified site; Z79.899 Other long term (current) drug therapy; Z20.822 Contact with and (suspected) exposure to COVID-19; Z79.82 Long term (current) use of aspirin; Z88.0 Allergy status to penicillin; Z68.33 Body mass index [BMI] 33.0-33.9, adult; Z88.8 Allergy status to other drugs, medicaments and biological substances; Z68.34 Body mass index [BMI] 34.0-34.9, adult
CPT/HCPCS: 36415; 80048; 80053; 81001; 83735; 84100; 84443; 84484; 85025; 96374; 96376; A9270-GY; G0378; J0282; J1160; J1940; J3490; J7030

== ENCOUNTER 2025-01-16 11:08 | Emergency (ER) | payer MEDICARE, OTHER ==
[2025-01-16] MEDS: Acetaminophen/HYDROcodone 325-5 MG Tab PO ONE (13:17)
== END 2025-01-16 13:27 | disposition home or self-care (01) ==
LOC: KA.ED 11:08
DX: S42.212A Unspecified displaced fracture of surgical neck of left humerus, initial encounter for closed fracture (principal); S90.31XA Contusion of right foot, initial encounter; S60.221A Contusion of right hand, initial encounter; I48.91 Unspecified atrial fibrillation; I11.0 Hypertensive heart disease with heart failure; I50.9 Heart failure, unspecified; E78.00 Pure hypercholesterolemia, unspecified; M19.90 Unspecified osteoarthritis, unspecified site; E66.9 Obesity, unspecified; Z68.35 Body mass index [BMI] 35.0-35.9, adult; Z86.16 Personal history of COVID-19; Z88.0 Allergy status to penicillin; Z79.01 Long term (current) use of anticoagulants; Z79.899 Other long term (current) drug therapy; W01.0XXA Fall on same level from slipping, tripping and stumbling without subsequent striking against object, initial encounter
CPT/HCPCS: 73030-LT; 73130-RT; 73630-RT; 99283; 99284; A9270-GY

== ENCOUNTER 2025-01-23 14:15 | Emergency (ER) | payer MEDICARE, OTHER | END 2025-01-23 16:30 | disposition home or self-care (01) | LOC: KA.ED 14:15 | DX: L02.512 Cutaneous abscess of left hand (principal); I25.10 Atherosclerotic heart disease of native coronary artery without angina pectoris; E78.00 Pure hypercholesterolemia, unspecified; I11.0 Hypertensive heart disease with heart failure; I50.9 Heart failure, unspecified; Z86.16 Personal history of COVID-19; Z79.899 Other long term (current) drug therapy; Z79.01 Long term (current) use of anticoagulants; Z88.0 Allergy status to penicillin | CPT/HCPCS: 10060; 87070; 87205; 99283; 99284; A9270; J2003; 87186 ==